=== PATIENT | male | born 1980 | race Caucasian/White ===

== ENCOUNTER 2023-01-05 13:20 | Emergency (ER) | payer MEDICAID ==
[~2023-01-05] VITALS: Ht 182.9 cm; Wt 95.0 kg
[2023-01-05 13:32] VITALS: BP 131/90
== END 2023-01-05 18:59 | disposition left against medical advice (07) ==
LOC: ER 13:20
DX: Z53.21 Procedure and treatment not carried out due to patient leaving prior to being seen by health care provider (principal)